=== PATIENT | male | born 1965 | race Asian ===

== ENCOUNTER 2019-09-07 13:44 | Inpatient (IN) | payer MEDICAID ==
[~2019-09-07] VITALS: Ht 165.1 cm; Wt 84.9 kg
[2019-09-07 14:57] LABS: BASOPHILS % 0.8 % (0.0-2.0); EOSINOPHILS % 7.5 % (0.0-5.0); HEMATOCRIT. 41.7 % (42.0-52.0); HEMOGLOBIN. 13.9 g/dL (14.0-18.0); LYMPHOCYTES % 20.6 % (20.0-50.0); MEAN CORPUSCULAR HEMOGLOBIN 29.4 pg (28.0-32.0); MEAN CORPUSCULAR VOLUME 88.4 fL (80.0-94.0); MEAN PLATELET VOLUME 8.2 fl (7.4-10.4); MONOCYTES % 8.6 % (2.0-8.0); NEUTROPHILS % 62.5 % (40.0-76.0); PLATELET 207 x1000/uL (130-400); RED BLOOD CELL COUNT 4.72 mill/uL (4.7-6.1); RED CELL DISTRIBUTION WIDTH 15.9 % (11.6-14.6)
[2019-09-07 14:59] LABS: CHLORIDE 105 mEq/L (98-107)
[2019-09-07] MEDS ORDERED: ASPIRIN 81MG TABLET PO ONE (15:30)
[2019-09-07] MEDS ORDERED: HEPARIN 25,000 UNITS PREMIX 500 ML IV ONE (17:15)
[2019-09-07] MEDS ORDERED: HEPARIN 5000 UNITS/ML VIAL IV ONE (17:15)
[2019-09-07 18:42] LABS: PARTIAL THROMBOPLASTIN TIME 27.8 sec (23.4-31.0); PROTHROMBIN TIME 10.5 sec (9.6-11.0)
[2019-09-08] VITALS (11 sets, daily range): BP systolic 130–191; BP diastolic 50–160
[2019-09-08] MEDS: CLONIDINE 0.1MG TABLET PO PRN ×2 (04:23→18:14)
[2019-09-08] MEDS ORDERED: ENOXAPARIN 80MG/0.8ML SYR SUBCUT SCH (06:00)
[2019-09-08] MEDS ORDERED: DILTIAZEM HCL 60MG TABLET PO SCH (06:00)
[2019-09-08 07:39] LABS: HEMATOCRIT. 38.4 % (42.0-52.0); HEMOGLOBIN. 12.8 g/dL (14.0-18.0); MEAN CORPUSCULAR HEMOGLOBIN 29.2 pg (28.0-32.0); MEAN CORPUSCULAR VOLUME 87.7 fL (80.0-94.0); MEAN PLATELET VOLUME 8.3 fl (7.4-10.4); PLATELET 187 x1000/uL (130-400); RED BLOOD CELL COUNT 4.37 mill/uL (4.7-6.1); RED CELL DISTRIBUTION WIDTH 15.5 % (11.6-14.6)
[2019-09-08] MEDS: FUROSEMIDE 40MG TABLET PO SCH (08:41)
[2019-09-08 11:47] LABS: PLATELET ESTIMATE NORMAL
[2019-09-08] MEDS: LOSARTAN POTASSIUM 50 MG TABLET PO SCH (14:03)
[2019-09-08] MEDS: DILTIAZEM HCL 60MG TABLET PO SCH ×2 (14:04→18:12)
[2019-09-08 16:21] LABS: CREATINE KINASE MB FRACTION < 1.0 ng/mL (0.5-3.6)
[2019-09-08 16:24] LABS: CREATINE KINASE 131 IU/L (39-308)
[2019-09-08] MEDS ORDERED: APIXABAN 5 MG TABLET PO SCH (17:00)
[2019-09-08 18:04] LABS: CLARITY URINE CLEAR (CLEAR); COLOR URINE YELLOW (YELLOW); KETONES URINE NEGATIVE (NEGATIVE); LEUKOCYTE ESTERASE URINE NEGATIVE (NEGATIVE); NITRITE URINE NEGATIVE (NEGATIVE); OCCULT BLOOD URINE NEGATIVE (NEGATIVE); PH URINE 5.5 (4.5-8.0); PROTEIN URINE 1+ (NEGATIVE); SPECIFIC GRAVITY URINE 1.014 (1.005-1.030); UROBILINOGEN URINE 0.2 E.U./dL (0.2-1.0)
[2019-09-08] MEDS: APIXABAN 2.5 MG TABLET PO SCH (20:15)
[2019-09-08] MEDS: ATORVASTATIN CALCIUM 20MG TABLET PO SCH (20:16)
[2019-09-08] MEDS ORDERED: ZOLPIDEM TARTRATE 5MG TABLET PO PRN (22:15)
[2019-09-09] VITALS (13 sets, daily range): BP systolic 108–169; BP diastolic 63–133
[2019-09-09] MEDS: DILTIAZEM HCL 60MG TABLET PO SCH ×4 (00:16→18:11)
[2019-09-09] MEDS: CLONIDINE 0.1MG TABLET PO PRN (00:41)
[2019-09-09 06:39] LABS: HEMATOCRIT. 41.4 % (42.0-52.0); HEMOGLOBIN. 13.7 g/dL (14.0-18.0); MEAN CORPUSCULAR HEMOGLOBIN 29.3 pg (28.0-32.0); MEAN CORPUSCULAR VOLUME 88.5 fL (80.0-94.0); MEAN PLATELET VOLUME 8.4 fl (7.4-10.4); PLATELET 179 x1000/uL (130-400); RED BLOOD CELL COUNT 4.68 mill/uL (4.7-6.1); RED CELL DISTRIBUTION WIDTH 15.7 % (11.6-14.6)
[2019-09-09] MEDS: FUROSEMIDE 40MG TABLET PO SCH (08:49)
[2019-09-09] MEDS: APIXABAN 2.5 MG TABLET PO SCH ×2 (08:49→20:03)
[2019-09-09] MEDS: LOSARTAN POTASSIUM 50 MG TABLET PO SCH (08:49)
[2019-09-09 08:56] LABS: PHOSPHORUS 3.5 mg/dL (2.5-4.9)
[2019-09-09 09:51] LABS: PLATELET ESTIMATE NORMAL
[2019-09-09] MEDS ORDERED: BECL10.6 INH (16:44)
[2019-09-09] MEDS ORDERED: ALBU18HF2 IH (16:44)
[2019-09-09] MEDS ORDERED: METO25TA6 MT (16:46)
[2019-09-09] MEDS ORDERED: FURO40TA5 MT (16:46)
[2019-09-09] MEDS ORDERED: ATOR-2 MT (16:48)
[2019-09-09] MEDS ORDERED: AMLO10TA80 MT (16:48)
[2019-09-09] MEDS ORDERED: APIX5TAB MT (16:48)
[2019-09-09] MEDS ORDERED: LISI-604 MT (16:48)
[2019-09-09] MEDS: ATORVASTATIN CALCIUM 20MG TABLET PO SCH (20:03)
[2019-09-10] VITALS (12 sets, daily range): BP systolic 114–192; BP diastolic 61–114
[2019-09-10] MEDS: DILTIAZEM HCL 60MG TABLET PO SCH ×2 (00:17→06:24)
[2019-09-10 07:24] LABS: HEMATOCRIT. 40.6 % (42.0-52.0); HEMOGLOBIN. 13.4 g/dL (14.0-18.0); MEAN CORPUSCULAR HEMOGLOBIN 29.2 pg (28.0-32.0); MEAN CORPUSCULAR VOLUME 88.1 fL (80.0-94.0); MEAN PLATELET VOLUME 8.2 fl (7.4-10.4); PLATELET 192 x1000/uL (130-400); RED CELL DISTRIBUTION WIDTH 15.5 % (11.6-14.6)
[2019-09-10] MEDS: LOSARTAN POTASSIUM 50 MG TABLET PO SCH (08:39)
[2019-09-10] MEDS: APIXABAN 2.5 MG TABLET PO SCH ×2 (08:39→20:41)
[2019-09-10] MEDS: FUROSEMIDE 40MG TABLET PO SCH (08:39)
[2019-09-10 08:52] LABS: PHOSPHORUS 3.8 mg/dL (2.5-4.9)
[2019-09-10 10:09] LABS: PLATELET ESTIMATE NORMAL
[2019-09-10] MEDS: DILTIAZEM HCL 300MG CAPSULE SR 24HR PO SCH (13:31)
[2019-09-10] MEDS: CLONIDINE 0.1MG TABLET PO PRN (17:47)
[2019-09-10] MEDS: HYDROCODONE/ACETAMINOPHEN 5/325MG TABLET PO PRN (17:53)
[2019-09-10] MEDS: ATORVASTATIN CALCIUM 20MG TABLET PO SCH (20:41)
[2019-09-11] VITALS (11 sets, daily range): BP systolic 118–177; BP diastolic 68–132
[2019-09-11] MEDS: CLONIDINE 0.1MG TABLET PO PRN ×2 (04:03→15:15)
[2019-09-11] MEDS: HYDROCODONE/ACETAMINOPHEN 5/325MG TABLET PO PRN ×2 (06:24→15:16)
[2019-09-11 07:49] LABS: BASOPHILS % 0.7 % (0.0-2.0); EOSINOPHILS % 6.2 % (0.0-5.0); HEMATOCRIT. 37.5 % (42.0-52.0); HEMOGLOBIN. 12.3 g/dL (14.0-18.0); LYMPHOCYTES % 15.5 % (20.0-50.0); MEAN CORPUSCULAR HEMOGLOBIN 28.7 pg (28.0-32.0); MEAN CORPUSCULAR VOLUME 87.9 fL (80.0-94.0); MEAN PLATELET VOLUME 8.4 fl (7.4-10.4); NEUTROPHILS % 68.6 % (40.0-76.0); PLATELET 178 x1000/uL (130-400); RED BLOOD CELL COUNT 4.27 mill/uL (4.7-6.1); RED CELL DISTRIBUTION WIDTH 15.6 % (11.6-14.6)
[2019-09-11] MEDS: FUROSEMIDE 40MG TABLET PO SCH (10:55)
[2019-09-11] MEDS: DILTIAZEM HCL 300MG CAPSULE SR 24HR PO SCH (10:55)
[2019-09-11] MEDS: APIXABAN 2.5 MG TABLET PO SCH ×2 (10:55→20:15)
[2019-09-11] MEDS: LOSARTAN POTASSIUM 100 MG TABLET PO SCH (10:55)
[2019-09-11] MEDS: CLONIDINE 0.1MG TABLET PO SCH ×2 (11:46→18:08)
[2019-09-11 14:37] LABS: AMYLASE 137 IU/L (25-115)
[2019-09-11] MEDS: ATORVASTATIN CALCIUM 20MG TABLET PO SCH (20:15)
[2019-09-12] VITALS (12 sets, daily range): BP systolic 111–159; BP diastolic 62–88
[2019-09-12] MEDS: HYDROCODONE/ACETAMINOPHEN 5/325MG TABLET PO PRN ×2 (00:41→19:44)
[2019-09-12 05:51] LABS: BASOPHILS % 0.7 % (0.0-2.0); EOSINOPHILS % 2.6 % (0.0-5.0); HEMATOCRIT. 37.6 % (42.0-52.0); HEMOGLOBIN. 12.2 g/dL (14.0-18.0); LYMPHOCYTES % 19.4 % (20.0-50.0); MEAN CORPUSCULAR HEMOGLOBIN 28.7 pg (28.0-32.0); MEAN CORPUSCULAR VOLUME 88.1 fL (80.0-94.0); MEAN PLATELET VOLUME 8.3 fl (7.4-10.4); MONOCYTES % 14.6 % (2.0-8.0); NEUTROPHILS % 62.7 % (40.0-76.0); PLATELET 163 x1000/uL (130-400); RED BLOOD CELL COUNT 4.27 mill/uL (4.7-6.1); RED CELL DISTRIBUTION WIDTH 15.8 % (11.6-14.6)
[2019-09-12 06:07] LABS: CHLORIDE 107 mEq/L (98-107)
[2019-09-12] MEDS: APIXABAN 2.5 MG TABLET PO SCH (09:57)
[2019-09-12] MEDS: DILTIAZEM HCL 300MG CAPSULE SR 24HR PO SCH (09:57)
[2019-09-12] MEDS: CLONIDINE 0.1MG TABLET PO SCH ×2 (09:57→17:49)
[2019-09-12] MEDS: FUROSEMIDE 40MG TABLET PO SCH (09:58)
[2019-09-12] MEDS: LOSARTAN POTASSIUM 100 MG TABLET PO SCH (12:38)
[2019-09-12] MEDS ORDERED: LOSA100T3 PO (15:46)
[2019-09-12] MEDS ORDERED: APIX2.5T PO (15:46)
[2019-09-12] MEDS ORDERED: DILT300C35 PO (15:46)
[2019-09-12] MEDS ORDERED: CLON0.1T14 PO (15:46)
[2019-09-12] MEDS ORDERED: ATOR20TA PO (15:46)
== END 2019-09-12 19:58 | DRG 201 ==
LOC: ER 14:03 → 3WST 18:36 → EDBEDREQTM 18:43 → EDBEDREQ 18:43 → ENRESERV 21:58
PROVIDERS: ADMIT Internal Medicine; ATTEND Internal Medicine
DX: I48.91 Unspecified atrial fibrillation (principal); N17.0 Acute kidney failure with tubular necrosis; I50.43 Acute on chronic combined systolic (congestive) and diastolic (congestive) heart failure; D72.1 Eosinophilia; E11.22 Type 2 diabetes mellitus with diabetic chronic kidney disease; M00.9 Pyogenic arthritis, unspecified; E11.65 Type 2 diabetes mellitus with hyperglycemia; N18.3 Chronic kidney disease, stage 3 (moderate); I27.20 Pulmonary hypertension, unspecified; E66.01 Morbid (severe) obesity due to excess calories; K86.1 Other chronic pancreatitis; J44.9 Chronic obstructive pulmonary disease, unspecified; K80.20 Calculus of gallbladder without cholecystitis without obstruction; D64.9 Anemia, unspecified; K92.2 Gastrointestinal hemorrhage, unspecified; M25.572 Pain in left ankle and joints of left foot; N28.1 Cyst of kidney, acquired; G47.30 Sleep apnea, unspecified; I25.118 Atherosclerotic heart disease of native coronary artery with other forms of angina pectoris; I13.0 Hypertensive heart and chronic kidney disease with heart failure and stage 1 through stage 4 chronic kidney disease, or unspecified chronic kidney disease; J45.909 Unspecified asthma, uncomplicated; Z79.01 Long term (current) use of anticoagulants; Z82.49 Family history of ischemic heart disease and other diseases of the circulatory system; Z95.5 Presence of coronary angioplasty implant and graft; Z85.048 Personal history of other malignant neoplasm of rectum, rectosigmoid junction, and anus; Z59.0 Homelessness; Z68.31 Body mass index [BMI] 31.0-31.9, adult
CPT/HCPCS: 36415; 71045; 73610; 74181; 76700; 80048; 80061; 80076; 81003; 82150; 82550; 82553; 83036; 83735; 83880; 84100; 84484; 93005; 93306; 97162; 99291; J1644; J1650